=== PATIENT | male | born 1995 | race Caucasian/White ===

== ENCOUNTER 2016-09-18 18:08 | Emergency (ER) | payer MEDICAID, OTHER ==
[2016-09-18 18:17] VITALS: BP 119/75
--- NOTE | 2016-09-18 18:50 | EDM.PDOC ---
ED HPI GENERAL MEDICAL PROBLEM - General Chief Complaint: Upper Extremity Injury/Pain Stated Complaint: RIBZack GONCALVES, [id number] Time Seen by Provider: 09/18/16 18:47 Source of Information: Reports: Patient History Limitations: Reports: No Limitations - History of Present Illness INITIAL COMMENTS - FREE TEXT/NARRATIVE: fell hurting right ribs and right arm left elbow. denies head/neck injury/pain Chest Pain Score (Numeric/FACES): 10 - Related Data Allergies Allergy/AdvReac Type Severity Reaction Status Date / Time No Known Allergies Allergy Verified 09/18/16 18:13 Home Meds: Home Meds . [No Known Home Meds] 09/18/16 [History] Past Medical History - Past Health History Medical/Surgical History: Denies Medical/Surgical History Social & Family History - Family History Family Medical History: Noncontributory - Tobacco Use Smoking Status *Q: Current Every Day Smoker Years of Tobacco use: 9 Packs/Tins Daily: 1 - Caffeine Use Caffeine Use: Reports: Soda - Recreational Drug Use Recreational Drug Use: No Review of Systems - Review of Systems Review Of Systems: ROS reveals no pertinent complaints other than HPI. Trauma Exam - Physical Exam Exam: See Below Exam Limited By: No Limitations General Appearance: Reports: Alert, WD/WN, Mild Distress, Other (upset) Head: Reports: Atraumatic Eyes: Bilateral Eye: PERRL (pupils ER @ 4mm) Ears: Reports: Hearing Grossly Normal Throat/Mouth: Reports: Normal Voice, No Airway Compromise Neck: Reports: Non-Tender, Full Range of Motion Respiratory Exam: Reports: No Respiratory Distress, Lungs Clear, Normal Breath Sounds, Other (right lower ribs abrasion, no crepitus) Cardiovascular: Reports: Regular Rate, Rhythm GI/Abdominal: Reports: Soft, Non-Tender Extremities: Pain with Movement, Tenderness, Other (right forearm abrasion with good ROM, left elbow tender @ radial head on R/P, NV wnl) Neurologic: Reports: No Motor/Sensory Deficits, Alert, Oriented x 3 Skin: Reports: Normal Color, Warm/Dry Course - Vital Signs Last Recorded V/S: Last Vital Signs Temp 36.6 C 09/18/16 18:13 Pulse 80 09/18/16 18:13 Resp 18 09/18/16 18:13 BP 119/75 09/18/16 18:13 Pulse Ox 100 09/18/16 18:13 - Orders/Labs/Meds Orders: Active Orders 24 hr Category Date Time Status Acetaminophen/HYDROcodone [[place] 325-10 MG] Med 09/18/16 20:09 Once 1 tab PO ONETIME ONE Medication Orders Hydrocodone Bitart/Acetaminophen ([place] 325-10 Mg) 1 tab PO ONETIME ONE Stop: 09/18/16 20:10 Labs: Laboratory Tests 09/18/16 Range/Units 18:40 Urine Color Yellow (YELLOW) Urine Appearance Slightly cloudy (CLEAR) Urine pH 6.0 (5.0-9.0) Ur Specific [place] 1.010 (1.005-1.030) Urine Protein 100 H (NEGATIVE) Urine Glucose (UA) Negative (NEGATIVE) Urine Ketones Negative (NEGATIVE) Urine Occult Blood Trace-lysed H (NEGATIVE) Urine Nitrite Negative (NEGATIVE) Urine Bilirubin Negative (NEGATIVE) Urine Urobilinogen 0.2 (0.2-1.0) mg/dL Ur Leukocyte Esterase Trace H (NEGATIVE) Urine RBC 5-10 H /HPF Urine WBC 5-10 H (0-5/HPF) /HPF Ur Epithelial Cells Few /HPF Amorphous Sediment Moderate (0/HPF) /HPF Urine Mucus Few H /LPF Meds: Medications Generic Name Dose Route Start Last Admin Trade Name Freq PRN Reason Stop Dose Admin Hydrocodone Bitart/Acetaminophen 1 tab 09/18/16 20:09 [place] 325-10 Mg PO 09/18/16 20:10 ONETIME ONE - Re-Assessments/Exams Free Text/Narrative Re-Assessment/Exam: 09/18/16 20:10 negative results discussed with pt Departure - Departure Time of Disposition: 20:10 Disposition: Home, Self-Care 01 Condition: good Clinical Impression: Abrasion, forearm without infection Contusion of rib on right side Qualifiers: Encounter type: initial encounter Qualified Code(s): S20.211A - Contusion of right front wall of thorax, initial encounter Contusion of elbow, left Qualifiers: Encounter type: initial encounter Qualified Code(s): S50.02XA - Contusion of left elbow, initial encounter - Discharge Information Instructions: Contusion, [id number] Forms: ED Department Discharge Additional Instructions: 1) rest 2) avoid bending lifting straining 3) try ice or heat to sore areas 4) try tylenol or motrin for pain 5) follow up at clinic or recheck as needed - My Orders Last 24 Hours: My Active Orders 09/18/16 20:09 Acetaminophen/HYDROcodone [[place] 325-10 MG] 1 tab PO ONETIME ONE - Assessment/Plan Last 24 Hours: My Active Orders 09/18/16 20:09 Acetaminophen/HYDROcodone [[place] 325-10 MG] 1 tab PO ONETIME ONE
[2016-09-18] MEDS ORDERED: Acetaminophen/HYDROcodone 325-10 MG Tab PO ONE (20:09)
== END 2016-09-18 20:20 | disposition home or self-care (01) ==
LOC: DL.ED 18:08
DX: S20.211A Contusion of right front wall of thorax, initial encounter (principal); S50.02XA Contusion of left elbow, initial encounter; S50.812A Abrasion of left forearm, initial encounter; F17.210 Nicotine dependence, cigarettes, uncomplicated; W19.XXXA Unspecified fall, initial encounter
CPT/HCPCS: 71101; 73080; 81001; 99283; A9270

== ENCOUNTER 2016-10-02 08:43 | Emergency (ER) | payer MEDICAID, OTHER ==
--- NOTE | 2016-10-02 08:46 | EDM.PDOC ---
ED HPI GENERAL MEDICAL PROBLEM - General Chief Complaint: Upper Extremity Injury/Pain Stated Complaint: [id number] SOMETHING WRONG WITH ARM FELL @ HOME Time Seen by Provider: 10/02/16 08:46 Source of Information: Reports: Patient, Old Records, RN, RN Notes Reviewed History Limitations: Reports: No Limitations - History of Present Illness INITIAL COMMENTS - FREE TEXT/NARRATIVE: Tripped and fell down 2 steps injuring right wrist. Denies any other injury. Quality: Reports: Ache Severity: Severe Improves with: Reports: None Worsens with: Reports: None Associated Symptoms: Reports: No Other Symptoms Right Wrist Pain Score (Numeric/FACES): 10 - Related Data Allergies Allergy/AdvReac Type Severity Reaction Status Date / Time No Known Allergies Allergy Verified 10/02/16 08:59 Home Meds: Home Meds . [No Known Home Meds] 09/18/16 [History] Past Medical History - Past Health History Medical/Surgical History: Denies Medical/Surgical History Social & Family History - Family History Family Medical History: Noncontributory - Tobacco Use Smoking Status *Q: Current Every Day Smoker Years of Tobacco use: 9 Packs/Tins Daily: 1 - Caffeine Use Caffeine Use: Reports: Soda - Recreational Drug Use Recreational Drug Use: No - Living Situation & Occupation Living situation: Reports: with Family Review of Systems - Review of Systems Review Of Systems: ROS reveals no pertinent complaints other than HPI. ED EXAM, GENERAL - Physical Exam Exam: See Below Exam Limited By: No Limitations General Appearance: Alert, WD/WN, No Apparent Distress Neck: Normal Inspection, Supple, Non-Tender, Full Range of Motion Respiratory/Chest: No Respiratory Distress Cardiovascular: Normal Peripheral Pulses Back Exam: Normal Inspection, Full Range of Motion, NT Extremities: Other (Painful and decreased ROM of right wrist and MCPJs 2-5. Dorsal right hand contusion with hand and wrist swelling and tenderness. Skin intact. ) Neurological: Alert, Oriented, CN II-XII Intact, Normal Cognition, Normal Gait, Normal Reflexes, No Motor/Sensory Deficits Psychiatric: Normal Affect, Normal Mood Course - Vital Signs Last Recorded V/S: Last Vital Signs Temp 36.6 C 10/02/16 08:53 Pulse 73 10/02/16 08:53 Resp 18 10/02/16 08:53 BP 144/93 H 10/02/16 08:53 Pulse Ox 98 10/02/16 08:53 - Orders/Labs/Meds Orders: Active Orders 24 hr Category Date Time Status Wrist Comp Min 3V Rt [CR] Urgent Exams 10/02/16 08:53 Taken - Radiology Interpretation Free Text/Narrative:: X-ray wrist: Per rad report shows ossific density projecting from the distal aspect of the wrist may represent dorsal chip fracture. Soft tissue swelling in this region. Departure - Departure Time of Disposition: 09:24 Disposition: Home, Self-Care 01 Condition: good Clinical Impression: Fracture of metacarpal bone of right hand Right wrist sprain Qualifiers: Encounter type: initial encounter Qualified Code(s): S63.501A - Unspecified sprain of right wrist, initial encounter - Discharge Information Instructions: Metacarpal Fracture, [id number], Wrist Sprain Forms: ED Department Discharge Additional Instructions: RX: Motrin 600mg. Tramadol 50mg. Rest, ice and elevate. Do not take splint off. Follow up in clinic in the next week. - My Orders Last 24 Hours: My Active Orders 10/02/16 08:53 Wrist Comp Min 3V Rt [CR] Urgent - Assessment/Plan Last 24 Hours: My Active Orders 10/02/16 08:53 Wrist Comp Min 3V Rt [CR] Urgent
[2016-10-02 08:59] VITALS: BP 144/93
[2016-10-02] MEDS ORDERED: traMADol 50 MG Tab PO ONE (09:26)
[2016-10-02] MEDS ORDERED: Ibuprofen 600 MG Tab PO ONE (09:26)
== END 2016-10-02 09:42 | disposition home or self-care (01) ==
LOC: DL.ED 08:43
DX: S62.309A Unspecified fracture of unspecified metacarpal bone, initial encounter for closed fracture (principal); F17.210 Nicotine dependence, cigarettes, uncomplicated; W10.9XXA Fall (on) (from) unspecified stairs and steps, initial encounter
CPT/HCPCS: 73110; 99283; A9270